=== PATIENT | male | born 1945 | race Caucasian/White ===

== ENCOUNTER → 2016-12-04 | Outpatient (CLI) | payer OTHER ==
[~2016-12-04] MED LIST: OPTIRAY 320 IV PRN
--- NOTE | 2016-12-04 11:32 | DIAGNOSTIC IMAGING REPORT ---
ABD/PELVIS COMBO HISTORY: 71 years-old Male HEMATURIA gross hematuria. History of prior left sided hernia repair. No history of kidney stones. COMPARISON: None available. TECHNIQUE: Multiple axial CT images of the abdomen and pelvis were obtained both with and without the use of 120 mL Optiray 320 utilizing hematuria protocol with delayed postcontrast images. A dose lowering technique was used consistent with the principals of MEGHANN. FINDINGS: The imaged inferior cardiac chambers are mildly enlarged. Coronary arterial calcifications are noted. Partially imaged subsegmental linear consolidative opacities with air bronchograms noted within the right middle lobe. Calcified granulomas are also present within this distribution. Lung bases are otherwise generally clear. No pneumoperitoneum identified. There are several low attenuating mostly circumscribed lesions throughout the liver measuring up to 9 mm which are nonspecific, however suggest hepatic cysts. There is no intrahepatic biliary ductal dilation. Large gallstone is seen within the gallbladder fundus. No CT evidence of acute cholecystitis. Spleen is unremarkable. Moderate diffuse pancreatic atrophy with scattered pancreatic calcifications suggesting sequela of prior pancreatitis. Nonspecific mildly enlarged lymph node is seen superior to the pancreatic neck on image 161 of series 5, 2.2 x 1.3 cm. Periportal lymph node is seen measuring up to 9 mm, nonspecific. Left adrenal gland appears mildly thickened with areas of apparent calcification, suspicious for prior hemorrhage. There is a fatty attenuating lesion of the lateral limb right adrenal gland, 2.7 x 2.2 cm compatible with adrenal myolipoma. Lobulated morphology of the bilateral kidneys. Multiple bilateral renal cysts. Indeterminate 1.5 x 1.4 cm exophytic lesion seen involving the posterior inferior pole right kidney on image 252 of series 5 without significant enhancement suggesting complex cyst. No definite enhancing lesions of either kidney identified. Largest cyst is on the left than the interpolar region, 3.8 cm. 1.2 x 0.8 cm calculus is seen within the interpolar right kidney. Bilateral renal vascular calcifications are noted. There is no ureteral calculi or hydronephrosis identified. Ureters are normal in caliber. No collecting system filling defects or urothelial thickening. At least 2 bladder stones are present, largest of which measures 2.6 x 2.7 cm. Smaller 7 mm stone is seen dependently. There is wall thickening of the urinary bladder suggesting sequela of chronic bladder outlet obstruction. Right lateral bladder diverticulum is seen, 1.2 cm. Prostate is enlarged containing peripheral and central calcifications overall measuring up to 6.3 cm transversely. Moderate bilateral fat filled inguinal hernias. Moderate atherosclerotic plaquing of the abdominal aorta. No bulky adenopathy. No bowel obstruction. Scattered colonic diverticulosis without diverticulitis. Soft tissues are unremarkable. Moderate bilateral gynecomastia. Bones are mildly demineralized. Multilevel discogenic degenerative changes and facet arthropathy. Mild convex left curvature of the lumbar spine. IMPRESSION: 1. Large calculus of the interpolar right kidney, 1.2 cm without obstructive uropathy. Bladder calculi are also seen, largest of which measures up to 2.7 cm. 2. Prostamegaly with evidence of chronic bladder outlet obstruction. 3. Cholelithiasis without CT evidence of acute cholecystitis. 4. Colonic diverticulosis without CT evidence of acute diverticulitis. 5. Multiple bilateral renal cysts. Mildly complex cystic lesion of the inferior pole right kidney measuring up to 1.5 cm as above without significant enhancement identified suggests complex cyst. Attention at follow-up recommended. 6. Additional incidental findings as above. The above report was generated using voice recognition software. It may contain grammatical, syntax or spelling errors. Electronically signed by: Luiz Cardensa M.D. 12/04/2016 11:31 AM Dictated Date/Time: 12/04/2016 11:16 AM
== END | disposition home or self-care (01) ==
LOC: C.CTS 10:30
PROVIDERS: ATTEND Urology
DX: R31.0 Gross hematuria (principal); N20.0 Calculus of kidney; N40.1 Benign prostatic hyperplasia with lower urinary tract symptoms; K57.30 Diverticulosis of large intestine without perforation or abscess without bleeding; K80.20 Calculus of gallbladder without cholecystitis without obstruction

== ENCOUNTER → 2016-12-04 | Outpatient (CLI) | payer OTHER | END | disposition home or self-care (01) | LOC: C.PAPS 10:33 → C.LABSPEC 10:33 | PROVIDERS: ATTEND Urology | DX: N39.0 Urinary tract infection, site not specified (principal); N20.0 Calculus of kidney; R97.20 Elevated prostate specific antigen [PSA] ==

== ENCOUNTER → 2017-01-14 | Outpatient (CLI) | payer OTHER ==
[~2017-01-14] MED LIST changes: +ACT15 PO; +CANA1TAB PO; +CIPR-255 PO; +CRG625 PO; +DVN80 PO; +MONT1TAB3 PO; -OPTIRAY 320 IV PRN; +OXYC-57 PO; +PHEN-876 PO; +PSYL0.524 PO; +SAXA1TAB PO; +SENN8.6T96 PO; +SIMV20TA2 PO; +SOLI10TA2 PO
== END | disposition home or self-care (01) ==
LOC: C.LABSPEC 16:56
PROVIDERS: ATTEND Urology
DX: N20.0 Calculus of kidney (principal)

== ENCOUNTER → 2017-05-13 | Outpatient (CLI) | payer OTHER ==
--- NOTE | 2017-05-13 12:57 | DIAGNOSTIC IMAGING REPORT ---
KUB CLINICAL HISTORY: 71 years-old Male presenting with N20.0 Calculus of [id number]. TECHNIQUE: Single supine view of the abdomen was obtained. COMPARISON: CT from 12/04/2016. FINDINGS: Nonobstructive bowel gas pattern. No gross pneumoperitoneum. Pancreatic parenchymal calcifications likely indicate chronic Patricio tightness. 12 mm right renal calculus again noted. No radiographic evidence of ureteral or right renal calculi. Degenerative changes of the spine. Elevation of the right hemidiaphragm, unchanged. IMPRESSION: 1. Right renal calculus unchanged. No ureteral calculi. 2. Evidence of chronic pancreatitis. Electronically signed by: Demarcus Price M.D. 05/13/2017 12:56 PM Dictated Date/Time: 05/13/2017 12:55 PM
== END | disposition home or self-care (01) ==
LOC: C.RAD1850 11:17
PROVIDERS: ATTEND Urology
DX: N20.0 Calculus of kidney (principal); K86.1 Other chronic pancreatitis